=== PATIENT | female | born 1980 | race Caucasian/White ===

== ENCOUNTER 2021-03-08 20:53 | Emergency (ER) | payer OTHER ==
[2021-03-08 22:13] LABS: HEMOGLOBIN 13.6 gm/dl (12.3-15.3); RED BLOOD COUNT 4.77 M/UL (4.00-5.10); WHITE BLOOD COUNT 7.2 K/UL (4.5-11.0)
[2021-03-08 23:15] LABS: BUN/CREATININE RATIO 27 (0-10)
[2021-03-09] MEDS ORDERED: BACTROBAN OINT22 GM EXT (17:06)
[2021-03-09] MEDS ORDERED: BACTRIM DS TAB1 EACH PO (17:06)
== END 2021-03-09 00:01 | disposition home or self-care (01) ==
LOC: ER1 20:53
PROVIDERS: Physician Assistant
DX: T81.30XA Disruption of wound, unspecified, initial encounter (principal); E11.9 Type 2 diabetes mellitus without complications; Z88.0 Allergy status to penicillin; F17.200 Nicotine dependence, unspecified, uncomplicated; X58.XXXA Exposure to other specified factors, initial encounter
CPT/HCPCS: 73564; 80048; 85025; 86140; 99283

== ENCOUNTER 2021-03-09 13:49 | Emergency (ER) | payer OTHER ==
[2021-03-09 14:34] LABS: HEMOGLOBIN 13.7 gm/dl (12.3-15.3); RED BLOOD COUNT 4.79 M/UL (4.00-5.10); WHITE BLOOD COUNT 7.7 K/UL (4.5-11.0)
[2021-03-09 14:58] LABS: BUN/CREATININE RATIO 40 (0-10)
[2021-03-09] MEDS ORDERED: BACTRIM DS TAB1 EACH PO (17:06)
[2021-03-09] MEDS ORDERED: BACTROBAN OINT22 GM EXT (17:06)
== END 2021-03-09 17:20 | disposition home or self-care (01) ==
LOC: ER1 13:49
PROVIDERS: Physician Assistant
DX: T81.30XA Disruption of wound, unspecified, initial encounter (principal); E11.9 Type 2 diabetes mellitus without complications; Z79.4 Long term (current) use of insulin; Z88.0 Allergy status to penicillin; Z89.512 Acquired absence of left leg below knee; Y83.8 Other surgical procedures as the cause of abnormal reaction of the patient, or of later complication, without mention of misadventure at the time of the procedure
CPT/HCPCS: 73564; 80053; 82009; 83605; 85025; 85652; 86140; 87070; 87077; 87186; 87205; 99283

== ENCOUNTER 2021-06-03 22:39 | Emergency (ER) | payer MEDICARE, OTHER ==
[~2021-06-03 22:39] MED LIST: BACTRIM DS TAB1 EACH PO; BACTROBAN OINT22 GM EXT
[2021-06-03 22:59] LABS: HEMOGLOBIN 12.8 gm/dl (12.3-15.3); RED BLOOD COUNT 4.33 M/UL (4.00-5.10); WHITE BLOOD COUNT 8.1 K/UL (4.5-11.0)
[2021-06-03 23:22] LABS: BUN/CREATININE RATIO 10 (0-10)
== END 2021-06-04 02:48 | disposition home or self-care (01) ==
LOC: ER1 22:39
PROVIDERS: Student in an Organized Health Care Education/Training Program
DX: R07.9 Chest pain, unspecified (principal); E11.9 Type 2 diabetes mellitus without complications; E78.5 Hyperlipidemia, unspecified; Z79.4 Long term (current) use of insulin; I10 Essential (primary) hypertension; F17.290 Nicotine dependence, other tobacco product, uncomplicated; Z88.1 Allergy status to other antibiotic agents; Z88.0 Allergy status to penicillin
CPT/HCPCS: 71045; 80053; 81001; 82550; 82553; 84484; 85025; 93005; 96372; 99285; J1885

== ENCOUNTER 2021-10-07 22:04 | Inpatient (IN) | payer MEDICARE, OTHER ==
[~2021-10-07] VITALS: Ht 175.3 cm; Wt 133.1 kg
[2021-10-07 23:13] LABS: HEMOGLOBIN 13.9 gm/dl (12.3-15.3); RED BLOOD COUNT 4.64 M/UL (4.00-5.10); WHITE BLOOD COUNT 9.7 K/UL (4.5-11.0)
[2021-10-07 23:36] LABS: BUN/CREATININE RATIO 20 (0-10)
[2021-10-08] MEDS ORDERED: OZEMPIC1 MG/0.71 SQ (11:57)
[2021-10-08] MEDS ORDERED: FARXIGA5 MG PO (11:57)
[2021-10-08] MEDS ORDERED: HUMALOG100 UNIT/3 SC (11:59)
[2021-10-08] MEDS ORDERED: LEVEMIR FL100 UNIT/1 SQ (12:39)
[2021-10-09 06:01] LABS: RED BLOOD COUNT 4.12 M/UL (4.00-5.10); WHITE BLOOD COUNT 6.9 K/UL (4.5-11.0)
[2021-10-09 06:55] LABS: BUN/CREATININE RATIO 21 (0-10)
[2021-10-10 06:04] LABS: BUN/CREATININE RATIO 31 (0-10)
--- NOTE | 2021-10-10 09:30 | NUR ---
PT PREPARING FOR SURGERY. ALL JEWELRY REMOVED. JEWELRY GIVEN TO SECURITY TO LOCK UP. NAD.
--- NOTE | 2021-10-10 09:40 | NUR ---
PT TO OR AT THIS TIME.
[2021-10-11 04:33] LABS: HEMOGLOBIN 11.5 gm/dl (12.3-15.3); RED BLOOD COUNT 3.93 M/UL (4.00-5.10)
[2021-10-11 04:40] LABS: WHITE BLOOD COUNT 5.1 K/UL (4.5-11.0)
[2021-10-11 04:49] LABS: BUN/CREATININE RATIO 25 (0-10)
[2021-10-12] MEDS ORDERED: HUMALOG 10100 UNITS/ SC (13:12)
[2021-10-12] MEDS ORDERED: DIFLUCAN150 MG PO (13:15)
[2021-10-12] MEDS ORDERED: LISINOPRIL10 MG PO (13:15)
[2021-10-12] MEDS ORDERED: BENADRYL 1% CRE15 GM TOP (13:15)
[2021-10-12] MEDS ORDERED: AMLODIPINE BESYL5 MG PO (13:15)
[2021-10-12] MEDS ORDERED: CEFDINIR300 MG PO (13:15)
[2021-10-12] MEDS ORDERED: OMNICEF 300 MG300 MG PO (14:46)
[2021-10-12] MEDS ORDERED: PERCOCET 10-321 EACH PO (15:20)
== END 2021-10-12 15:54 | disposition home or self-care (01) | DRG 565 ==
LOC: ER1 22:04 → CDU 10-08 03:22 → MED SURG 4 10-08 03:22 → CDU 10-08 07:25 → MED SURG 4 10-08 09:33
PROVIDERS: Internal Medicine; Physician Assistant; Surgery; ADMIT Internal Medicine
PROC: 0J9P0ZZ Drainage of Left Lower Leg Subcutaneous Tissue and Fascia, Open Approach (ICD-10-PCS; principal; 2021-10-10 10:00)
DX: T87.44 Infection of amputation stump, left lower extremity (principal); Z68.41 Body mass index [BMI] 40.0-44.9, adult; E66.01 Morbid (severe) obesity due to excess calories; E78.5 Hyperlipidemia, unspecified; Z20.822 Contact with and (suspected) exposure to COVID-19; Y83.8 Other surgical procedures as the cause of abnormal reaction of the patient, or of later complication, without mention of misadventure at the time of the procedure; E11.9 Type 2 diabetes mellitus without complications; I10 Essential (primary) hypertension; Z91.14 Patient's other noncompliance with medication regimen; Z90.49 Acquired absence of other specified parts of digestive tract; Z89.429 Acquired absence of other toe(s), unspecified side; Z98.891 History of uterine scar from previous surgery; Z83.3 Family history of diabetes mellitus; Z82.49 Family history of ischemic heart disease and other diseases of the circulatory system; Z87.891 Personal history of nicotine dependence; Z88.0 Allergy status to penicillin
CPT/HCPCS: 36415; 73564; 73700; 80048; 80053; 80202; 82962; 85025; 85652; 86140; 87040; 87070; 87077; 87186; 87205; 96365; 96366; 96367; 96375; 96376; 97161; 97165; 99285; J1170; J1650; J2185; J2250; J2270; J2405; J2704; J3370; J7070; U0002